=== PATIENT | female | born 1995 | race Caucasian/White ===

== ENCOUNTER 2025-07-13 03:45 | Inpatient (IN) ==
[2025-07-13] MEDS ORDERED: OXYTOCIN 30 UNITS/NSS 30 UNITS/500 ML BAG IV PRN ×2 (05:44→13:15)
[2025-07-13] MEDS ORDERED: LIDOCAINE 1% LOCAL 20 ML VIAL INFIL PRN (05:44)
[2025-07-13 06:06] LABS: Hematocrit (blood only) 35.2 % (37.0-47.0); Hemoglobin 12.1 g/dl (12.0-16.0); Mean Corpuscular Hemoglobin 31.2 pg (25.0-34.0); Mean Corpuscular Volume 90.7 fL (80.0-100.0); Platelet Count 177 K/uL (130-400); RDW Standard Deviation 41.1 fL (36.4-46.3); Red Blood Count 3.88 M/uL (4.20-5.40); White Blood Count 13.17 K/ul (4.8-10.8)
[2025-07-13] MEDS: LACTATED RINGER'S 1,000 ML IV PRN (06:15)
--- NOTE | 2025-07-13 06:23 | Anesthesiology Consultation ---
Date of Service July 13, 2025 Assessment & Plan (1) Encounter for pre-operative examination: Chart Review Chart Review: Acceptable Risk for Labor Epidural History Height/Weight Height: 5 ft Weight: 69.539 kg Allergies Allergy/AdvReac Type Severity Reaction Status Date / Time No Known Allergies Allergy Verified 07/07/25 15:27 Medications Home Medications Medication Instructions Recorded Confirmed Last Taken betamethasone dipropionate 0.05 % 1 applic topical DAILY 09/24/24 07/13/25 1 Day Ago topical cream ~07/12/25 prenat.vits,nicolle,[id number] 1 tab PO DAILY 12/16/24 07/13/25 1 Day Ago ~07/12/25 Active Medications Generic Name Dose Route Start Last Admin Trade Name Freq PRN Reason Stop Dose Admin Lactated Ringer's 1,000 mls @ 125 mls/hr 07/13/25 05:44 07/13/25 06:15 Lr IV 07/15/25 05:43 125 mls/hr .Q8H PRN Administration L&D Protocol Protocol Past Medical History Medical History Ruptured ectopic No pertinent past medical history Past Family History Family History Mother Hypertension Pancreatitis Bipolar 1 disorder Father Hypertension Denies family history of Ovarian cancer Prostate cancer Breast cancer Colorectal cancer Past Surgical History Surgical History History of unilateral salpingectomy right, ectopic 2023 Social History Smoking Status: Never smoker Hx Alcohol Use: Yes Hx Substance Use: No Physical Exam Vital Signs Last Vital Signs Temp 36.5 C 07/13/25 04:10 Pulse 73 07/13/25 06:20 Resp 16 07/13/25 04:10 BP 118/71 07/13/25 04:02 Pulse Ox 99 07/13/25 06:20 Testing Laboratory Results 07/13/25 05:52
[2025-07-13] MEDS: BUPIVACAINE 0.25% PF 30 ML VIAL ONE (07:04)
[2025-07-13] MEDS: LIDOCAINE 2%/EPINEPHRINE 1:200,000 20 ML PF ONE (07:04)
[2025-07-13] MEDS ORDERED: ROPIVACAINE 0.5% PF 5 MG/ML 20 ML VIAL EPI PRN (07:08)
[2025-07-13] MEDS ORDERED: fentANYL 2 MCG/ML BUPIVacaine 0.125%-NSS 100ML BAG EPI PRN (07:08)
[2025-07-13] MEDS ORDERED: ONDANSETRON INJ 2 MG/ML 2 ML VIAL IV PRN (07:08)
[2025-07-13] MEDS ORDERED: NALOXONE HCL 0.4 MG/1 ML VIAL/CARP IV PRN (07:08)
[2025-07-13] MEDS ORDERED: BUPIVACAINE 0.25% PF 30 ML VIAL EPI PRN (07:08)
[2025-07-13] MEDS ORDERED: NALOXONE HCL 1 MG in SODIUM CHLORIDE 0.9% 1,000 ML IV PRN (07:08)
[2025-07-13] MEDS ORDERED: LIDOCAINE 2% MPF LOCAL 5 ML VIAL EPI PRN (07:08)
[2025-07-13] MEDS ORDERED: SODIUM CHLORIDE 0.9% PF INJ 10 ML VIAL EPI PRN (07:08)
[2025-07-13] MEDS: fentANYL 2 MCG/ML BUPIVacaine 0.125%-NSS 100ML BAG ONE (07:09)
--- NOTE | 2025-07-13 07:49 | History & Physical Report ---
Date of Service July 13, 2025 Assessment & Plan (1) Normal labor: Plan: Pt is a 29yo at 37w 6d with no significant antepartum hx presenting SROM Routine labs ordered Pitocin ordered Epidural placed Monitor tracing Expectant management for labor, anticipate Rh+, Rubella immune Needs hepatitis B vaccine outpatient with PCP Admission and Anticipated Discharge Date Admission Date: July 13, 2025 History of Present Illness Chief Complaint: SROM Primary Care Provider: VITALIY Ortiz Pt is a 29yo female currently at 37w 6d with an MADYSON 07/27/25 who is here because of SROM. Adequate movement; not feeling contractions; no bloody show Had regular appointments with OB. Labs: Blood Type O Positive 12/20/24 Antibody Screen NEGATIVE 12/20/24 Hgb 11.6 g/dl (12.0-16.0) L 05/10/25 Hct 33.6 % (37.0-47.0) L 05/10/25 MCV 90.4 fL (80.0-100.0) 12/20/24 Plt Count 276 K/uL (130-400) 12/20/24 Rubella IgG Antibody Immune (Immune) 12/20/24 Treponema pallidum Ab Negative (Negative) 05/10/25 Hep Bs Antigen Negative (Negative) 12/20/24 Hepatitis C Antibody Negative (Negative) 12/20/24 HIV 1&2 Ab/P24 Ag 4thGn Negative (Negative) 12/20/24 Glucose 1 Hr 50 gm 126 mg/dl (70-130) 05/10/25 Maternal Serum AFP 35.8 ng/mL 02/15/25 Chlamydia trachomatis RNA Not Detected (NotDetected) 12/20/24 Neisseria gonorrhoeae RNA Not Detected (NotDetected) 12/20/24 Alpha Fetoprotein Triple Screen SEE NOTE 02/15/25 Labs Reviewed: neg afp--[facility] low risk panorama--[facility] horizon neg--[facility] GBS: Negative Review of Systems : Denies fever, chills, headache, vision changes, shortness of breath, difficulty breathing, chest pain, palpitations, RUQ/epigastric pain, dysuria Allergies Allergy/AdvReac Type Severity Reaction Status Date / Time No Known Allergies Allergy Verified 07/07/25 15:27 Home Medications Medication Instructions Recorded Confirmed Type betamethasone dipropionate 0.05 % 1 applic topical DAILY 09/24/24 07/13/25 History topical cream prenat.vits,nicolle,[id number] 1 tab PO DAILY 12/16/24 07/13/25 History Patient History Medical History Ruptured ectopic No pertinent past medical history Surgical History History of unilateral salpingectomy right, ectopic 2023 Family History Mother Hypertension Pancreatitis Bipolar 1 disorder Father Hypertension Denies family history of Ovarian cancer Prostate cancer Breast cancer Colorectal cancer Social History (Updated 12/16/24 @ 10:50 by Shira Ceja) Smoking Status: Never smoker Tobacco Type: Cigarettes and E-cigarettes / Vaping Hx Alcohol Use: Yes Alcohol Intake Frequency: Monthly or Less Hx Substance Use: No Preferred Language: Uzbek Visual Impairment: No Limitations Caster Helper Required: No Beliefs That Will Affect Care: None marital status: Single marital status details: Sky (37) [phone] Current Living Situation: Significant Other Current Living Situation Comment: lives with FOB, 2 dogs. current occupational status: employed current occupation: Pest Control Service Technician Other Information That Helps Us Care for You: No Feels Safe at Home: Yes Safety Concerns: Feels Safe At This Time caffeine: Yes Dental Care, Regularly: Yes Seatbelt Use: always Sunscreen Use: Yes Assistive Devices: None Physical Exam Physical Exam: General: patient resting comfortably, NAD, non-toxic in appearance, AAOx4, answers questions appropriately. Skin: warm, dry, intact HEENT: NC/AT, anicteric sclera, conjunctiva without injection Heart: S1/S2 heard, regular, no m/r/g Lungs: equal air entry bilaterally, no rales/rhonchi/wheezes Abd: Normoactive BS, soft, NT/ND, gravid uterus Ext: warm, no clubbing/cyanosis or edema Neuro: nonfocal, speech intact, no facial droop, moving all extremities on command : FHR baseline 140, moderate variability, accelerations present, decelerations absent, rare contractions. Category 1 tracing. Results & Data Vital Signs (Past 12 Hours) Vital Signs Temp Pulse Resp BP Pulse Ox 07/13/25 07:43 67 104/63 07/13/25 07:42 70 96 07/13/25 07:37 74 104/56 L 96 07/13/25 07:33 78 113/54 L 07/13/25 07:32 80 98 07/13/25 07:27 80 95 07/13/25 07:26 76 102/55 L 07/13/25 07:24 80 102/50 L 07/13/25 07:22 95 07/13/25 07:22 83 07/13/25 07:22 76 107/54 L 07/13/25 07:20 85 99/54 L 07/13/25 07:18 75 101/54 L 07/13/25 07:17 79 97 07/13/25 07:16 83 97/55 L 94 07/13/25 07:14 85 98/54 L 07/13/25 07:12 96 07/13/25 07:12 82 07/13/25 07:12 78 96/53 L 07/13/25 07:10 75 98/56 L 07/13/25 07:08 71 96/53 L 07/13/25 07:07 75 96 07/13/25 07:06 67 90/55 L 07/13/25 07:04 59 L 108/66 07/13/25 07:02 63 109/69 95 07/13/25 07:01 66 93 07/13/25 07:00 73 103/69 07/13/25 06:58 80 110/58 L 07/13/25 06:57 75 97 07/13/25 06:56 75 115/60 07/13/25 06:54 85 85 L 07/13/25 06:52 78 98 07/13/25 06:49 98 H 87 L 07/13/25 06:47 84 97 07/13/25 06:30 99 H 89 L 07/13/25 06:25 75 97 07/13/25 06:20 73 99 07/13/25 06:15 76 95 07/13/25 06:10 96 07/13/25 06:10 75 07/13/25 06:10 77 88 L 07/13/25 06:05 78 94 07/13/25 06:03 69 92 07/13/25 06:00 79 95 07/13/25 04:10 36.5 C 16 07/13/25 04:02 68 118/71 Supervising Physician Co-Signing Physician Notes Resident Physician Supervision Note: I interviewed and examined the patient. Discussed with Dr. Mejia and agree with findings and plan as documented in the note. Any exceptions or clarifications are listed here: Patient seen and evaluated by my partner, Dr. Bowers , at change of shift. ROM at around MN, could not confirm grossly but Amnisure positive. Made cervical change per same nurse under observation and much more uncomfortable. admit. desires epidural now. Then plan pitocin as needed. fetus category one. Anticipate . Documented By: Virgie Mattson MD, FACOG Resident Activity Tracking Resident Involvement: Resident Care Provided Care Provided: OB Delivery
[2025-07-13] MEDS: SODIUM CHLORIDE 0.9% PF INJ 10 ML VIAL ONE (07:56)
[2025-07-13] MEDS: OXYTOCIN 30 UNITS/NSS 30 UNITS/500 ML BAG IV PRN (08:27)
[2025-07-13] MEDS: BUPIVACAINE 0.25% PF 30 ML VIAL EPI STA (10:23)
[2025-07-13] MEDS: LIDOCAINE 2%/EPINEPHRINE 1:200,000 20 ML PF EPI STA (10:24)
[2025-07-13] MEDS: SODIUM CHLORIDE 0.9% PF INJ 10 ML VIAL EPI STA (10:24)
[2025-07-13] MEDS ORDERED: CALCIUM CARBONATE 500 MG CHEWABLE TAB PO PRN (12:41)
[2025-07-13] MEDS: CALCIUM CARBONATE 500 MG CHEWABLE TAB ONE (12:44)
--- NOTE | 2025-07-13 13:05 | Delivery Summary ---
Vaginal Delivery Summary Date of Service July 13, 2025 Vaginal Delivery Summary and 1st Degree LAC Pre-operative Diagnosis: at 37 6/7 srom labor Post-operative Diagnosis: same Procedure: epidural pitocin augmentation first degree laceration repair QBL: 106cc Anesthesia: epidural Procedure: The patient presented to labor and delivery in early labor and srom. She then got an epidural and pit augmentation. She progressed to c/c/+1. The patient pushed to deliver a viable female infant in irma position. The nose and mouth were bulb suctioned on the perineum and the rest of the was then delivered without difficulty. The baby was vigorous. The nose and mouth were again bulb suctioned and the was placed in the maternal abdomen for drying and attention. Cord was clamped and cut at one minute of life. Cord blood and segment obtained. Placenta delivered spontaneous, intact with a three vessel cord. Cervix/sulci/rectum were intact. A small first degree perineal laceration was repaired in the normal standard fashion. Hemostasis obtained with dilute pitocin and fundal massage. Apgars were 8/9. Mother and baby doing well at the end of the delivery. [facility] [place] Vaginal Delivery Charge Delivery Type Details: and 1st Degree LAC
[2025-07-13] MEDS ORDERED: BENZOCAINE 20% SPRY 85 APPLN/85 GM CAN EXT PRN (13:15)
[2025-07-13] MEDS ORDERED: HYDROCORTISONE ACETATE 25 MG SUPP PR PRN (13:15)
[2025-07-13] MEDS ORDERED: ACETAMINOPHEN 325 MG TAB PO PRN (13:15)
[2025-07-13] MEDS: DIPHTHER/TETAN/PERTUS Vaccine (Tdap, Adol/Adult) 0.5mL IM ONE (16:24)
[2025-07-13] MEDS: IBUPROFEN 600 MG TAB PO PRN (17:06)
--- NOTE | 2025-07-13 17:55 | Anesthesia Procedure Note ---
Date of Service July 13, 2025 Anesthesia Post Epidural Note Vital Signs Vital Signs: Temp Pulse Resp BP Pulse Ox O2 Del Method 37.0 C 71 18 117/74 97 Room Air 07/13/25 16:45 07/13/25 16:45 07/13/25 16:45 07/13/25 16:45 07/13/25 16:45 07/13/25 16:45 Pain Intensity Perineal: Pain Intensity: 3 Notes Mental Status: alert / awake / arousable Nausea / Vomiting: adequately controlled Pain: adequately controlled Airway Patency, RR, SpO2: stable & adequate BP & HR: stable & adequate Hydration State: stable & adequate Neuraxial Anesthesia: was administered and sensory block is resolving Anesthetic Complications: no major complications apparent and Pt Satisfied with anesthetic care Epidural: Removed without complications and With tip intact
[2025-07-13] MEDS: DOCUSATE SODIUM 100 MG CAP PO SCH (20:43)
[2025-07-14 04:21] VITALS: RESP 16
[2025-07-14 06:15] VITALS: O2SAT 98
--- NOTE | 2025-07-14 06:27 | Obstetrical Progress Note ---
Date of Service July 14, 2025 Assessment & Plan (1) care and examination: Plan: 29yo post- day--1 s/p Fells well today Continue post- care Encourage ambulation and Pain controlled with Ibuprofen Vital Signs and Hgb stable Possible discharge home today, follow up with OB provider in 6 weeks Admission and Anticipated Discharge Date Admission Date: July 13, 2025 Supervising Physician Co-Signing Physician Notes Resident Physician Supervision Note: I interviewed and examined the patient. Discussed with Dr. Mejia and agree with findings and plan as documented in the note. Any exceptions or clarifications are listed here: Doing well. Meeting goals. Would like to go home later this evening. INstructions reviewed. Documented By: Virgie Mattson MD, FACOG Subjective 29yo post- day 1 s/p Ambulation: Ambulating normally Voiding: No voiding problems Passing Gas:: Yes Diet Tolerance:: regular diet Lochia:: moderate Feeding Type:: Current Pain Level: 0/10 controlled with Ibuprofen Resting comfortably this AM in NAD. Denies LOPEZ, CP, SOB, N/V/D, LE pain/swelling. Physical Exam Physical Exam: General: patient resting comfortably, NAD, non-toxic in appearance, answers questions appropriately Skin: warm, dry, intact Heart: S1/S2 heard, regular, no m/r/g Lungs: equal air entry bilaterally, no rales/rhonchi/wheezes Abd: Normoactive BS, soft, NT/ND, uterine fundus firm at umbilicus Ext: warm, no clubbing/cyanosis or edema, Stacey's neg Neuro: nonfocal, patient AAOx4, speech intact, no facial droop, moving all extremities on command Results & Data Vital Signs (Past 12 Hours) Vital Signs Temp Pulse Resp BP Pulse Ox O2 Del Method 07/14/25 04:15 36.4 C L 69 16 109/70 98 Room Air 07/14/25 00:00 36.7 C 58 L 16 116/76 97 Room Air 07/13/25 19:30 36.4 C L 66 18 115/78 97 Room Air Resident Activity Tracking Resident Involvement: Resident Care Provided Care Provided: OB Delivery
[2025-07-14 07:13] LABS: Hematocrit (blood only) 30.7 % (37.0-47.0); Hemoglobin 10.7 g/dl (12.0-16.0)
[2025-07-14] MEDS: PRENATAL VITAMIN 1 TAB PO SCH (09:10)
[2025-07-14 09:28] VITALS: BP 103/65; PULSE 62; TEMP 98.2
== END 2025-07-14 16:56 | disposition home or self-care (01) | DRG 807 ==
LOC: OPB 03:45 → 4S1 03:47 → 4E2 16:15